=== PATIENT | female | born 2000 | race African-American/Black ===

== ENCOUNTER 2018-12-04 13:44 | Emergency (ER) | payer MEDICAID ==
[~2018-12-04] VITALS: Ht 162.6 cm; Wt 78.1 kg
[2018-12-04 13:48] VITALS: BP 127/94
--- NOTE | 2018-12-04 14:14 | NUR ---
C/O LOWER ABD PAIN ALONG WITH N/V X3 DAYS. PT REPORTS CONSTANT ACHY PAIN AT 9/10. NO FEVER, OR DIARRHA. LAST BM YESTERDAY. . DENIES N/V/D; SKIN IS PINK/WARM/DRY; AAOX4 WITH EVEN AND STEADY GAIT; LUNGS CLEAR BL; HR EVEN AND REGULAR; PT DENIES ANY FEVER, CP, SOB, OR COUGH AT THIS TIME; PATIENT STATES PAIN OF 8/10 AT THIS TIME; VSS; PATIENT POSITIONED FOR COMFORT; HOB ELEVATED; BEDRAILS UP X2; BED DOWN. ER MD MADE AWARE OF PT STATUS.
[2018-12-04] MEDS ORDERED: KETOROLAC 15 MG/ML VIAL IVP ONE (14:45)
[2018-12-04] MEDS ORDERED: NACL 0.9% 1,000 ML IV ONE (14:45)
[2018-12-04] MEDS ORDERED: ONDANSETRON 4 MG/2 ML VIAL IVP ONE (14:45)
[2018-12-04 15:12] LABS: BASOPHILS % (AUTO) 0.6 % (0.0-2.0); EOSINOPHILS % (AUTO) 0.2 % (0.0-4.0); HEMATOCRIT 37.7 % (36-48); HEMOGLOBIN 12.2 g/dL (12.0-16.0); LYMPHOCYTES # (AUTO) 1.1 K/uL (2.5-16.5); LYMPHOCYTES % (AUTO) 17.9 % (20.5-51.1); MEAN CORPUSCULAR HEMOGLOBIN 26 pg (27-31); MEAN CORPUSCULAR HGB CONC 32 g/dL (33-37); MEAN CORPUSCULAR VOLUME 81.2 fL (80-94); MONOCYTES # (AUTO) 0.3 K/uL (0.8-1.0); NEUTROPHILS # (AUTO) 4.5 K/uL (1.8-7.7); NEUTROPHILS % (AUTO) 76.3 % (42.2-75.2); PLATELET COUNT (AUTO) 295 K/uL (140-450); RED BLOOD CELL COUNT(AUTO) 4.64 MIL/uL (4.20-5.40); RED CELL DISTRIBUTION WIDTH 14.8 % (11.6-13.7); WHITE BLOOD COUNT (AUTO) 5.9 K/uL (4.5-11.0)
[2018-12-04 15:13] LABS: APPEARANCE,URINE HAZY (CLEAR); BILIRUBIN,URINE 1+ (NEGATIVE); BLOOD, URINE TRACE-I (NEGATIVE); COLOR,URINE YELLOW (YELLOW); LEUKOCYTE ESTERASE ,URINE TRACE (NEGATIVE); NITRITE, URINE NEGATIVE (NEGATIVE); UGLUCOSE NEGATIVE (NEGATIVE)
[2018-12-04 15:39] LABS: RBC,URINE 0-5 /HPF (0-5); URINE AMORPHOUS URATE 2+ /HPF (None Seen); WBC,URINE 0-5 /HPF (0-5)
--- NOTE | 2018-12-04 17:22 | NUR ---
CT WITH CONTRAST CONSENT SIGNED BY PT
[2018-12-04 17:25] LABS: ANION GAP 15.4 (8-16); CARBON DIOXIDE 24.6 mmol/L (21-32); CREATININE 1.2 mg/dL (0.6-1.3)
--- NOTE | 2018-12-04 17:25 | NUR ---
PT TO CT SCAN VIA [facility]
[2018-12-04 17:31] LABS: TOTAL BILIRUBIN 0.5 mg/dL (0.0-1.0)
--- NOTE | 2018-12-04 18:06 | NUR ---
PT STATED PAIN STILL THERE BUT GETTING BETTER.
--- NOTE | 2018-12-04 19:10 | NUR ---
ENDORSED PT TO PM NURSE.
--- NOTE | 2018-12-04 19:15 | NUR ---
US TECH AT BEDSIDE
--- NOTE | 2018-12-04 19:30 | NUR ---
RECEIVED REPORT FROM AM NURSE. PT LAYING IN BED, FAMILY/FRIEND AT BEDSIDE. RR EVEN AND UNLABORED.
--- NOTE | 2018-12-04 20:10 | NUR ---
ACCOMPANIED CHIKA SILVA AT BEDSIDE FOR PELVIC EXAM
[2018-12-04 21:00] VITALS: BP 114/86
--- NOTE | 2018-12-04 21:00 | NUR ---
Patient discharged with v/s stable. Written and verbal after care instructions given and explained. Patient alert, oriented and verbalized understanding of instructions. Ambulatory with steady gait. All questions addressed prior to discharge. ID band removed. Patient advised to follow up with PMD. Rx of MOTRIN, TRAMADOL given. Patient educated on indication of medication including possible reaction and side effects. Opportunity to ask questions provided and answered.
== END 2018-12-04 21:00 | disposition home or self-care (01) ==
LOC: MED 13:44
DX: N83.201 Unspecified ovarian cyst, right side (principal); R11.2 Nausea with vomiting, unspecified
CPT/HCPCS: 36415; 74177; 76856; 80053; 81001; 83690; 84703; 85025; 87086; 87210; 93976; 96361; 96374; 96375; 99284; J1885; J2405; J7030; Q0092; Q9967